=== PATIENT | male | born 1965 | race Caucasian/White ===

== ENCOUNTER → 2018-10-04 | Outpatient (CLI) | payer SELFPAY ==
--- NOTE | 2018-10-04 16:16 | PCVCIMAG ---
APPROVED REPORT Study performed: 10/04/2018 15:02:25 Exam: Stress Echocardiogram Indication: Hyperlipidemia, Family hx of CAD Patient Location: Echo lab Stress Nurse: Alison Diaz RN Status: routine Ht: 5 ft 9 in HR: 75 bpm BP: 110/80 mmHg Rhythm: NSR Medical History Medical History: Hyperlipidemia Exercise History: Physically active Procedure The patient underwent an Exercise Stress Test using the Geovanny Protocol. Blood pressure, heart rate, and EKG were monitored. An Echocardiogram was performed by wire technician in four stages in quad fashion. At peak stress, four selected images were obtained and placed side by side with resting images for comparison. Stress Test Details Stress Test: Exercise stress testing was performed using a Geovanny protocol. HR Resting HR: 75 bpmMax Heart Rate (APMHR): 167 bpm Max HR Achieved: 166 bpmTarget HR (85% APMHR): 141 bpm % of APMHR: 99 Recovery HR: 95 bpm HR response to stress: Normal HR response to stress BP Resting BP: 110/80 mmHg Max BP: 164/80 mmHg Recovery BP: 95/ mmHg BP response to stress: Normal blood pressure response to stress. ECG Resting ECG: Sinus Rhythm Stress ECG: Sinus Rhythm Arrhythmia: VPC's Recovery ECG: Sinus Rhythm Clinical Reason for Termination: Maximal effort Exercise duration: 10 min 54 sec Highest Stage Achieved: Stage 3: 3.4 mph at 14% grade. Exercise capacity: 13.70 METs Overall Exercise Capacity for Age: Normal Pre-Stress Echo The resting Echocardiogram showed normal left ventricular contractility with an estimated Ejection Fraction of about 55-60%. Normal wall motion in all segments on baseline images. Post-Stress Echo Normal augmentation of wall motion in all segments on post stress images. Clinical No clinical or ECG evidence for ischemia. Conclusion Clinical Response: Non-ischemic Exercise Capacity: Average Stress ECG Response: Non-ischemic Stress Echo Images: Non-ischemic The left ventricle is normal in size and wall thickness in both the rest and stress images. Other Information Study Quality: Adequate <Conclusion> The left ventricle is normal in size and wall thickness in both the rest and stress images.
== END | disposition home or self-care (01) ==
LOC: PCVCIMAG 14:54
PROVIDERS: ATTEND Internal Medicine Cardiovascular Disease
DX: E78.5 Hyperlipidemia, unspecified (principal); I25.10 Atherosclerotic heart disease of native coronary artery without angina pectoris; Z82.49 Family history of ischemic heart disease and other diseases of the circulatory system
CPT/HCPCS: 93325; 93351